=== PATIENT | female | born 1990 | race Caucasian/White ===

== ENCOUNTER → 2017-01-20 | Day surgery (SDC) | payer OTHER ==
[~2017-01-20] VITALS: Ht 162.6 cm; Wt 63.5 kg
[~2017-01-20] MED LIST: ACETAMINOPHEN 650 MG SUPP As Ordered ONE; ACETAMINOPHEN 650 MG SUPP PR ONE; HYDROmorphone HCL 1 MG/ML SYRINGE (J1170) IV PRN; KETOROLAC 60 MG/2 ML VIAL (J1885) As Ordered ONE; LIDOCAINE 2% INJ 100 MG/5 ML SDV (FOR ANES.) As Ordered ONE; LR 1,000 ML IV ONE; LR 1,000 ML IV SCH; MIDAZOLAM INJ 2 MG/2 ML VIAL (J2250) As Ordered ONE; ONDANSETRON 4MG/2ML VIAL (J2405) As Ordered ONE; ONDANSETRON 4MG/2ML VIAL (J2405) IV PRN; PERCOCET 5MG/325MG TAB PO PRN; PROPOFOL 200 MG/20 ML VIAL As Ordered ONE; dexameTHASONE 4 MG/ML 1ML VIAL (J1100) As Ordered ONE; fentaNYL 100 MCG/2 ML INJECTION (J3010) As Ordered ONE; fentaNYL 100 MCG/2 ML INJECTION (J3010) IV PRN
[2017-01-20 10:33] LABS: MEAN CORPUSCULAR HEMOGLOBIN 30.3 pg (27.0-33.0); MEAN CORPUSCULAR HGB CONC 33.4 g/dl (32.0-36.5); MEAN CORPUSCULAR VOLUME 90.6 fl (80.0-96.0); RED CELL DISTRIBUTION WIDTH 12.6 % (11.5-14.5); WHITE BLOOD COUNT 7.2 K/mm3 (4.0-10.0)
[2017-01-20 10:53] LABS: ANION GAP 5 MEQ/L (8-16); BLOOD UREA NITROGEN 6 MG/DL (7-18); CALCIUM LEVEL 9.3 MG/DL (8.5-10.1); CARBON DIOXIDE LEVEL 27 MEQ/L (21-32); CHLORIDE LEVEL 105 MEQ/L (98-107); CREATININE FOR GFR 0.67 MG/DL (0.55-1.02); GLOMERULAR FILTRATION RATE > 60.0 (>60); GLUCOSE, FASTING 87 MG/DL (70-105); HCG, SERUM QUANTITATIVE < 1.0 MIU/ML; POTASSIUM SERUM 4.4 MEQ/L (3.5-5.1); SODIUM LEVEL 137 MEQ/L (136-145)
[2017-01-20 14:00] VITALS: BP 138/76
--- NOTE | 2017-01-25 12:34 | RO ---
DATE OF PROCEDURE: 01/20/2017 PREOPERATIVE DIAGNOSIS: Abnormal uterine bleeding. Declined medical therapy. POSTOPERATIVE DIAGNOSIS: Abnormal uterine bleeding. Declined medical therapy. OPERATION PROPOSED: Hysteroscopy, dilation and curettage (D and C), endometrial NovaSure ablation. OPERATION PERFORMED: Hysteroscopy, dilation and curettage, NovaSure ablation. SURGEON: Dr. Rayo Mendes RESIDENTIAL DESIGNER: ANESTHESIA: General. ESTIMATED BLOOD LOSS: Less than 20 mL. DESCRIPTION OF PROCEDURE: Under adequate anesthesia, prepped, draped in the lithotomy position, bladder drained for 150 mL of clear urine. Sequentials on board, acetaminophen suppository 1300 mg per rectum and time-out was done. The weighted speculum in vagina, a single-tooth tenaculum on the anterior lip of the cervix. There was some degree of cervical uterine prolapse. She has a multiparous os noted with a sounding of the uterus to 7 cm. Curettage of the cavity until smooth and sent off to pathology under separate cover. Last period was January 08, 2017. We were able to place the endometrial NovaSure ablation equipment into the uterus. The cavity was 6.0, the width was 4.2. The power range was 139 and a NovaSure ablation was done for 55 seconds. Once that was removed, we then hysteroscoped the patient and the reviewed the anatomy. The entire cavity, including both os showed evidence of charred endometrium with white and brown and black areas. There were no pink areas that were left, indicating a good burn pattern. There was no evidence of active bleeding. The uterus itself may be suggestive of adenomyosis, but this patient has had previous baby. With instrument and pad count correct all and instruments removed. The patient was sent to recovery in good condition.
== END | disposition home or self-care (01) ==
LOC: M SDC 09:55
PROVIDERS: ATTEND Obstetrics & Gynecology
DX: N92.6 Irregular menstruation, unspecified (principal); F17.210 Nicotine dependence, cigarettes, uncomplicated
CPT/HCPCS: 36415; 58563; 80048; 84702; 85027; 88305; A4649; J1100; J1885; J2250; J2405; J3010